=== PATIENT | female | born 1980 | race Caucasian/White ===

== ENCOUNTER 2021-10-29 23:42 | Emergency (ER) | payer OTHER ==
[2021-10-29 23:52] VITALS: BP 126/82; PULSE 90; TEMP 98.2; BMI 26.5
[2021-10-30] MEDS ORDERED: IBUPROFEN 600 MG TABLET (FP) PO ONE ×2 (01:01→01:40)
== END 2021-10-30 03:46 | disposition home or self-care (01) ==
LOC: JER 23:42
DX: S92.492A Other fracture of left great toe, initial encounter for closed fracture (principal); X50.0XXA Overexertion from strenuous movement or load, initial encounter
CPT/HCPCS: 73610-TC-LT-FY; 73630-TC-LT; 84703; 99284-25